=== PATIENT | female | born 1975 ===

== ENCOUNTER 2018-08-08 13:26 | Outpatient (CLI) | payer MEDICAID | END 2018-08-08 13:27 | disposition home or self-care (01) | LOC: BICMAMMO 13:26 | PROVIDERS: ATTEND Internal Medicine | DX: Z12.31 Encounter for screening mammogram for malignant neoplasm of breast (principal) | CPT/HCPCS: 77067 ==

== ENCOUNTER 2021-09-18 15:16 | Outpatient (CLI) | payer OTHER | END 2021-09-18 15:17 | disposition home or self-care (01) | LOC: BICRAD 15:16 | DX: R06.2 Wheezing (principal); J10.1 Influenza due to other identified influenza virus with other respiratory manifestations | CPT/HCPCS: 71046 ==